=== PATIENT | female | born 1955 | race Caucasian/White ===

== ENCOUNTER 2018-05-24 11:10 | Inpatient (IN) | payer BC ==
[~2018-05-24] VITALS: Ht 167.6 cm; Wt 58.0 kg
[~2018-05-24 11:10] MED LIST: DICL75TA2 PO; DOXY100T9 PO; DULO30CA2 PO; METH750T87 PO; OXYC-302 PO; TRAM-47 PO; TRAZ50TA18 PO
[2018-05-24] MEDS ORDERED: DIAZEPAM 5 MG/ML, 2ML IVPush ONE (12:00)
[2018-05-24] MEDS ORDERED: SODIUM CHLORIDE FLUSH 10ML SYR IVF ONE (12:00)
[2018-05-24] MEDS ORDERED: FENTANYL PF 100 MCG/2ML IV ONE (12:00)
[2018-05-24] MEDS ORDERED: ONDANSETRON ODT 4 MG PO ONE (12:00)
[2018-05-24 12:16] LABS: BASOPHILS # (AUTO) 0.06 x10^3/uL (0-0.1); BASOPHILS % (AUTO) 1 % (0-1); EOSINOPHILS # (AUTO) 0.03 x10^3/uL (0-0.4); EOSINOPHILS % (AUTO) 0 % (1-7); LYMPHOCYTES # (AUTO) 1.61 x10^3/uL (1-3.4); LYMPHOCYTES % (AUTO) 15 % (22-44); MD NO; MEAN CORPUSCULAR HEMOGLOBIN 29.3 pg (27.0-34.8); MEAN CORPUSCULAR HGB CONC 32.6 g/dL (32.4-35.8); MEAN CORPUSCULAR VOLUME 89.9 fL (80-100); MEAN PLATELET VOLUME 6.5 fL (7.4-10.4); MONOCYTES # (AUTO) 0.68 x10^3/uL (0.2-0.8); MONOCYTES % (AUTO) 7 % (2-9); NEUTROPHILS # (AUTO) 8.18 x10^3/uL (1.8-6.8); NEUTROPHILS % (AUTO) 78 % (42-75); PLATELET COUNT 689 x10^3/uL (130-400); RED BLOOD COUNT 3.39 x10^6/uL (3.82-5.3); RED CELL DISTRIBUTION WIDTH 13.6 % (9.6-15.2)
[2018-05-24] MEDS ORDERED: ONDANSETRON ODT 4 MG ONE (12:21)
[2018-05-24] MEDS ORDERED: FENTANYL PF 100 MCG/2ML ONE (12:22)
[2018-05-24 12:34] LABS: ANION GAP 9 mmol/L (5-15); CALCIUM 8.7 mg/dL (8.5-10.1); CHLORIDE 84 mmol/L (98-107)
[2018-05-24] MEDS: SODIUM CHLORIDE 0.9% 1,000 ML IV ONE ×2 (12:39→13:00)
[2018-05-24 12:47] LABS: MICROSCOPIC NOT IND
[2018-05-24 12:52] LABS: CULTURE INDICATED? NO
[2018-05-24] MEDS ORDERED: SODIUM CHLORIDE 0.9% 1,000 ML IV ONE (12:56)
[2018-05-24] MEDS ORDERED: SODIUM CHLORIDE 0.9% 1,000ML IVBOLUS ONE (13:00)
[2018-05-24] MEDS ORDERED: SODIUM CHLORIDE FLUSH 10ML SYR IVF PRN (13:00)
[2018-05-24] MEDS ORDERED: ENALAPRILAT 1.25 MG/ML, 2ML IVPush PRN (14:00)
[2018-05-24] MEDS ORDERED: TEMAZEPAM 15 MG CAPSULE PO PRN (14:00)
[2018-05-24] MEDS ORDERED: ACETAMINOPHEN 325 MG TABLET PO PRN (14:00)
[2018-05-24] MEDS ORDERED: ONDANSETRON 2MG/ML, 2ML IVPush PRN (14:00)
[2018-05-24] MEDS: KETOROLAC 30 MG/1 ML IVPush SCH ×2 (14:30→20:54)
[2018-05-24] MEDS: SODIUM CHLORIDE 0.9% 1,000 ML IV SCH (14:30)
[2018-05-24] MEDS ORDERED: METHOCARBAMOL 750 MG PO PRN (14:30)
[2018-05-24 14:42] LABS: FREE T4 (FREE THYROXINE) 0.93 ng/dL (0.76-1.46); THYROID STIMULATING HORMONE 4.85 mIU/L (0.358-3.740)
[2018-05-24] MEDS: ENOXAPARIN 40 MG/0.4 ML SQ SCH (15:00)
[2018-05-24 15:08] VITALS: BP 115/76
[2018-05-24] MEDS ORDERED: MORPHINE SULFATE 4 MG/ML, 1ML ONE (15:35)
[2018-05-24] MEDS: morphine SULFATE 10 MG/ML, 1ML IVPush PRN ×2 (15:37→19:47)
[2018-05-24] MEDS: OXYcodone/APAP 5/325MG TABLET PO PRN ×2 (17:41→22:30)
[2018-05-24 18:59] VITALS: BP 102/64
[2018-05-24 20:02] VITALS: BP 132/70
[2018-05-24] MEDS ORDERED: DULOXETINE 30 MG CAPSULE.DR PO SCH (21:00)
[2018-05-24] MEDS: GABAPENTIN 300 MG CAPSULE PO SCH (22:24)
[2018-05-25] MEDS: SODIUM CHLORIDE 0.9% 1,000 ML IV SCH ×3 (00:33→20:56)
[2018-05-25] MEDS: morphine SULFATE 10 MG/ML, 1ML IVPush PRN ×2 (01:00→08:31)
[2018-05-25 01:03] VITALS: BP 119/74
[2018-05-25] MEDS: KETOROLAC 30 MG/1 ML IVPush SCH ×2 (02:33→08:31)
[2018-05-25] MEDS: OXYcodone/APAP 5/325MG TABLET PO PRN ×4 (04:37→20:57)
[2018-05-25 05:25] LABS: ANION GAP 8 mmol/L (5-15); CALCIUM 8.6 mg/dL (8.5-10.1); CHLORIDE 102 mmol/L (98-107)
[2018-05-25 05:31] LABS: % IRON SATURATION 17 % (20-55); CREATININE 0.54 mg/dL (0.55-1.02); IRON LEVEL 40 mcg/dL (50-170); TOTAL IRON BINDING CAPACITY 230 mcg/dL (250-450)
[2018-05-25 06:53] VITALS: BP 121/56
[2018-05-25] MEDS: POLYETHYLENE GLYCOL 17 GM PACKET PO SCH (08:32)
[2018-05-25] MEDS: FERROUS SULFATE 325 MG TABLET PO SCH ×2 (11:49→17:49)
[2018-05-25 13:10] VITALS: BP 114/80
[2018-05-25] MEDS: ENOXAPARIN 40 MG/0.4 ML SQ SCH (16:00)
[2018-05-25 20:00] VITALS: BP 123/77
[2018-05-25] MEDS: GABAPENTIN 300 MG CAPSULE PO SCH (20:57)
[2018-05-25] MEDS ORDERED: GABAPENTIN 300 MG CAPSULE PO SCH (21:00)
[2018-05-25] MEDS ORDERED: DULOXETINE 30 MG CAPSULE.DR PO SCH (21:00)
[2018-05-26] MEDS: morphine SULFATE 10 MG/ML, 1ML IVPush PRN (00:30)
[2018-05-26 02:00] VITALS: BP 130/83
[2018-05-26] MEDS: OXYcodone/APAP 5/325MG TABLET PO PRN ×4 (03:55→21:25)
[2018-05-26] MEDS: SODIUM CHLORIDE 0.9% 1,000 ML IV SCH (05:16)
[2018-05-26 06:02] LABS: ANION GAP 6 mmol/L (5-15); CALCIUM 8.8 mg/dL (8.5-10.1); CHLORIDE 103 mmol/L (98-107); CREATININE 0.42 mg/dL (0.55-1.02)
[2018-05-26 06:48] VITALS: BP 111/69
[2018-05-26] MEDS: FERROUS SULFATE 325 MG TABLET PO SCH ×3 (09:06→15:57)
[2018-05-26] MEDS: POLYETHYLENE GLYCOL 17 GM PACKET PO SCH (09:06)
[2018-05-26] MEDS: KETOROLAC 30 MG/1 ML IVPush PRN ×3 (10:23→22:38)
[2018-05-26] MEDS ORDERED: TRAZODONE 100MG TABLET PO PRN (10:30)
[2018-05-26 12:40] VITALS: BP 109/71
[2018-05-26 18:43] VITALS: BP 108/71
[2018-05-26] MEDS: ENOXAPARIN 40 MG/0.4 ML SQ SCH (20:11)
[2018-05-26] MEDS: GABAPENTIN 300 MG CAPSULE PO SCH (20:12)
[2018-05-27] MEDS: GABAPENTIN 300 MG CAPSULE PO SCH (00:58)
[2018-05-27 01:45] VITALS: BP 115/72
[2018-05-27] MEDS: OXYcodone/APAP 5/325MG TABLET PO PRN ×3 (02:01→13:35)
[2018-05-27 05:29] LABS: ANION GAP 9 mmol/L (5-15); CHLORIDE 101 mmol/L (98-107)
[2018-05-27 05:30] LABS: CREATININE 0.51 mg/dL (0.55-1.02)
[2018-05-27 08:55] VITALS: BP 104/70
[2018-05-27] MEDS: FERROUS SULFATE 325 MG TABLET PO SCH (09:32)
[2018-05-27] MEDS: POLYETHYLENE GLYCOL 17 GM PACKET PO SCH (09:32)
[2018-05-27] MEDS ORDERED: GABA300C10 PO (13:04)
[2018-05-27] MEDS ORDERED: KETO10TA PO (13:04)
[2018-05-27] MEDS ORDERED: MIRT15TA3 PO (13:04)
[2018-05-27] MEDS ORDERED: FERR-51 PO (13:04)
[2018-05-27] MEDS: KETOROLAC 30 MG/1 ML IVPush PRN (13:35)
[2018-05-27 13:50] VITALS: BP 101/67
== END 2018-05-27 14:20 | disposition home health service (06) | DRG 552 ==
LOC: ED 12:55 → EDIP 12:56 → ED 13:48 → 4EST 14:49 → DCLOUNGE 05-27 14:02
PROVIDERS: ADMIT Hospitalist; ATTEND Hospitalist
DX: M54.16 Radiculopathy, lumbar region (principal); D62 Acute posthemorrhagic anemia; E87.1 Hypo-osmolality and hyponatremia; M41.9 Scoliosis, unspecified; Z80.0 Family history of malignant neoplasm of digestive organs; Z88.6 Allergy status to analgesic agent; Z91.018 Allergy to other foods; Z88.2 Allergy status to sulfonamides; F32.9 Major depressive disorder, single episode, unspecified
CPT/HCPCS: 36415; 80048; 81003; 82040; 83540; 83550; 83735; 84100; 84439; 84443; 85025; 93005; 96361; 96374; 96375; J1650; J1885; J2405; J3010; J3360; Q0162; J2270; J7030